=== PATIENT | male | born 1965 | race Caucasian/White ===

== ENCOUNTER 2016-06-30 23:59 | Emergency (ER) | payer OTHER ==
[~2016-06-30] VITALS: Ht 175.3 cm; Wt 90.9 kg
[~2016-06-30 23:59] MED LIST: BLOO-1504 MC; LEVO500T16 PO; ONDA-54 PO; [UNRECOGNIZED DRUG - OTHER]; [UNRECOGNIZED DRUG - SUPPLY] INTRADERM
[2016-07-01 00:22] VITALS: BP 108/62; PULSE 114; O2SAT 98
--- NOTE | 2016-07-01 00:40 | ED.REPORT ---
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 Pain is relieved by laying flat, and certain positions that take pressure off his abdomen.The patient reports having nausea, shortness of breath, chest pain, vomiting, intermittent fever with a high of 105F and decreased urination frequency. He report regular flatulence, and denies chills and leg swelling. Last chemotherapy treatment was a week ago. Patient's code status is DNAR, reasonable measures. Nursing Notes Stated Complaint: ABDOMINAL PAIN Chief Complaint: Male Abdominal Pain Nursing Notes Reviewed: Yes Allergies: Coded Allergies: mold (Verified Allergy, Unknown, 07/01/16) Uncoded Allergies: POLLEN (Allergy, Unknown, 09/07/15) Scheduled Blood Sugar Diagnostic (Test Strips) 1 Each Strip 1 EACH MC BIDAC check glucose levels when symptomatic Levofloxacin (Levaquin) 500 Mg Tablet 500 MG PO DAILY Ondansetron (Ondansetron) 8 Mg Tablet 8 MG PO TID Scheduled PRN Ondansetron ODT (Ondansetron ODT) 4 Mg Tab.rapdis 4 MG PO Q6H PRN PRN For Nausea Miscellaneous Medications ([diability permit]) General Time Seen by MD: 00:39 Chief Complaint Abdominal pain Hx Obtained From: Patient Arrived By: Walk-in Sudden in Onset?: Yes Onset Occurred: 1 week ago Symptom Duration: 1 week Location: : Diffuse Quality: Pressure Severity: Current: Pain level 7 out of 10 Recent Healthcare: No recent hospitalization, Recent doctor visit Similar Sx Previous: Yes Past Medical History Past Medical History Melanoma with mets to liver, spleen, prostate, eyes reports borderline hyperlipidemia Reports: GERD, Hypertension Past Surgical History removal of melanoma Family History Has two uncles who of myocardial infarctions in their 60s Smoking History Never Smoker Social History Alcohol Use: "Social" Drug Use: Denies drug use Other Social History: Good social support, Local resident 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 Physical Exam Initial Vital Signs Vital Signs (First) Date Time Temp Pulse Resp B/P Pulse Ox O2 Delivery O2 Flow Rate FiO2 07/01/16 00:22 36.5 114 108/62 98 Room Air 07/01/16 03:33 20 Initial VS: Reviewed General/Constitutional: Awake, Alert, No acute distress Appearance / Presentation: Positive: Ill appearing/not toxic (chronic) Respiratory / Chest: Atraumatic, Breath sounds NL, Breath sounds = bilat, No respiratory distress Cardiovascular: Heart sounds NL Heart Rate / Rhythm: Positive: Tachycardia Abdomen: No guarding Bowel Sounds / Distention: Positive: Distention severe (with fluid wave) liver is palpable 10cm below costoverterbral angle mild diffuse tenderness to liver Back: Atraumatic, Full range of motion Head / Eyes: Atraumatic, Normocephalic, PERRL, EOMI ENT: Atraumatic, Airway patent, Mucous membranes moist Skin: Atraumatic, Color NL, No rash, Warm, Dry Neurologic: Oriented X3, Speech NL, No motor deficits, No sensory deficits Neck: Atraumatic, Supple, Full range of motion Upper Extremity / MS: Atraumatic, Full range of motion Lower Extremity / Pelvis / MS: Atraumatic, Full range of motion Psychiatric: Affect NL, Mood NL Interpretation & Diagnostics Lab Results Interpretation Result Diagram: 07/01/16 0045 07/01/16 0045 Test 07/01/16 00:45 White Blood Count 5.4th/mm3 (3.8-10.1) Red Blood Count 3.05mil/mm3 (4.40-5.80) Hemoglobin 8.7g/dL (13.8-17.2) Hematocrit 28.0% (41.0-50.0) Mean Corpuscular Volume 91.8fL (81-100) Mean Corpuscular Hemoglobin 28.5pg (27.0-35.0) Mean Corpuscular Hemoglobin Concent 31.1% (32.0-37.0) Red Cell Distribution Width 16.6% (12.3-15.4) Platelet Count 202bil/L (150-400) Neutrophils (%) (Auto) 62.0% (40-74) Lymphocytes (%) (Auto) 12.0% (14-46) Monocytes (%) (Auto) 16.6% (4-12) Eosinophils (%) (Auto) 1.5% (0-5) Basophils (%) (Auto) 0.9% (0-3) Band Neutrophils % 7% (1-5) Prothrombin Time 14.8sec (8.1-12.5) Prothromb Time International Ratio 1.37ratio Sodium Level 131mEq/L (134-144) Potassium Level 4.6mEq/L (3.5-5.2) Chloride Level 95mEq/L (97-108) Carbon Dioxide Level 18mmol/L (18-29) Blood Urea Nitrogen 15mg/dL (6-24) Creatinine 0.88mg/dL (0.76-1.27) Estimat Glomerular Filtration Rate 98mL/min (>59) Glucose Level 115mg/dL (60-99) Calcium Level 7.6mg/dL (8.5-10.1) Magnesium Level 2.6mg/dL (1.6-2.6) Total Bilirubin 2.4mg/dL (0.0-1.2) Aspartate Amino Transf (AST/SGOT) 119U/L (0-50) Alanine Aminotransferase (ALT/SGPT) 36U/L (0-44) Alkaline Phosphatase 629U/L (25-150) Total Protein 6.3g/dL (6.4-8.4) Albumin 3.2g/dL (3.4-5.0) Lipase 42U/L (13-60) ECG Interpretation ECG Interpretation: sinus tachycardia, rate [address] elevations no T wave inversions no change from prior Time: 01:03 Interpreted by: ED physician CT Abd / Pelvis Interpretation Findings: lower thorax: no acute findings. Abdomen: liver: the liver is severly enlarged and contains multiple low density areas, metastatic disease is favored. There are additional soft tissue nodules seen throughout the abdomen and pelvis, metastatic disease or lymphoma should be considered. Gallbladder and bile ducts: normal. No calcified stones. No ductal dilation. Pancrease: Normal. No ductal dilation. Spleen: Multiple low- density foci, metastic disease or lymphoma should be considered. Adrenals: Normal. No masses Kidneys and ureters: No hydronephrosis. No CT evidence of mass. Pelvis: Bladder: No stones. No wall thickening. Reproductive: Normal as visualized. Appendix: No findings to suggest actute appendicitis. Abdomen and Pelvis: Stomach and bowel: No obstruction. No wall thickening. Peritoneum: No fluid collection. No free air. Low volume free fluid. Lymph nodes: No lymph nodes which are considered pathologic by CT size criteria. Vasculature: No aortic aneurysm. Body wall: No fluid collections, edema or mass. Bones: Multiple lytic areas throughout the pelvis, spine and proximal femurs, lymphoma versus metastatic disease. Impression: Enlarged liver containing multiplle low density masses, there is also soft tissue nodules throughout the abdomen and pelvis, lytic lesions throughout the visualized osseous structures and low- density areas throughout the spleen. Differential diagnosis includes metastatic disease versus lymphoma. Study type: Abdominal CT IV contrast Interpretation / Wet Read by: Interpret - Radiologist Re-Eval/Medical Decision Med Decision/Clinical Course 50-year-old male with past medical history of metastatic melanoma here with worsening of his abdominal distention over the last several days. Differential diagnosis includes but is not limited to Luke he has bacterial peritonitis versus new onset ascites versus hepatomegaly versus worsening of his disease. Initially, my plan was to perform CT scan of the patient to confirm ascites, and then perform paracentesis to rule out SBP. His CT scan was concerning as his entire abdomen appears to be liver, and there is very minimal ascites to withdraw. I deferred doing a paracentesis as I was concerned for puncturing his liver. Labs appear to be at baseline with anemia, mild bandemia, expected electro abnormalities and liver dysfunction. I do not feel that there is any emergent need to admit the patient to the hospital for his worsening hepatomegaly. He has follow-up in 2 days with his oncologist. He is aware and amenable to discharge and has been given very strict return precautions. Source of Hx: Old records Time of Eval: 02:53 Re-Evaluation/Progress Note: Discussed lab and imaging results and plan to discharge with plan for immediate follow-up with oncology. Return precautions given. All other questions addressed. Counseled Regarding: Diagnosis, Lab results, Need for follow-up, When/why to return to ED Discharge & Departure Primary Impression: Hepatomegaly Disposition: Home Vital Signs - All Vital Signs Date Time Temp Pulse Resp B/P Pulse Ox O2 Delivery O2 Flow Rate FiO2 07/01/16 03:33 102 20 104/50 97 Room Air 07/01/16 00:22 36.5 114 108/62 98 Room Air )( All Prior VS Reviewed: Yes Condition: Stable Additional Instructions: Take the prescribed Zofran as directed for nausea. Follow-up with your oncologist first thing Sunday morning as planned. Return to the ER if you develop any new or uncontrollable pain, or any other worsening or concerning symptoms. Referrals: Macho López MD [facility] Scribe Attestation Portions of this note were transcribed by Elle Rojas and Lc Kemp. I, Dr. Billy personally performed the history, physical exam and medical decision- making; I reviewed and confirmed the accuracy of the information in the transcribed note. Signed by: Elle Rojas and Marta Guerrero, 07/01/16 and 03:03 copies to: Macho López MD; [facility] Daniella Billy MD Jul 01, 2016 00:40 Marjorie Rojas Jul 01, 2016 00:57 LC KEMP Jul 01, 2016 02:22
[2016-07-01 00:59] LABS: Mean Corpuscular Hemoglobin 28.5 pg (27.0-35.0); Mean Corpuscular Volume 91.8 fL (81-100); Platelet Count 202 bil/L (150-400)
[2016-07-01 01:32] LABS: BASOPHILS % (AUTO) 0.9 % (0-3); EOSINOPHILS % (AUTO) 1.5 % (0-5); MONOCYTES % (AUTO) 16.6 % (4-12)
[2016-07-01 01:45] LABS: Magnesium 2.6 mg/dL (1.6-2.6)
[2016-07-01 01:56] LABS: INR 1.37 ratio
[2016-07-01] MEDS ORDERED: Ondansetron 2 mg/mL 2 mL Inj ONE (02:12)
[2016-07-01] MEDS ORDERED: Ondansetron 2 mg/mL 2 mL Inj IVPUSH ONE (02:15)
[2016-07-01] MEDS ORDERED: _Ondansetron ODT 4 mg Tablet PO PRN (03:05)
[2016-07-01] MEDS ORDERED: ONDA4TAB12 PO (03:13)
[2016-07-01 03:33] VITALS: BP 104/50; PULSE 102; RESP 20; O2SAT 97
--- NOTE | 2016-07-01 11:31 | DRSVH ---
PROCEDURE: CT ABDOMEN AND PELVIS WITH CONTRAST ([id number]) INDICATIONS: new onset distention, metastatic melanoma and known but the extensive involvement of th e lungs liver spleen and adenopathy in the neck supraclavicular or lesion mediastinum and pelvis. TECHNIQUE: After the administration of intravenous contrast, 5 mm thick sections acquired from the diaphragm to the symphysis. 5 mm coronal and sagittal reformats were acquired. For radiation dose reduction, the following was used: automated exposure control, adjustment of mA and/or kV according to patient siz e. COMPARISON: None. FINDINGS: Image quality: Excellent. ABDOMEN: Lung bases: Lung bases demonstrate increasing size of the bilateral numerous nodules. There is some subsegmental atelectasis at both lung bases. Heart size is normal. In the lower subcutaneous chest w all fat nodules presently seen have increased in size to previous study. Solid organs: The liver is prominently enlarged for multiple metastatic lesions in the liver is more enlarged than it was on the previous study of 06/12/16, thought to account for the distention. Spleen is considered unchanged with scattered lesions consistent with metastases.. Gallbladder is thought t o be identified and normal.. Biliary system is non dilated. Pancreas enhances normally. The nodular prominence of the left adrenal gland is unchanged. The right adrenal gland is considered normal.. K idneys demonstrate normal size and enhancement, without hydronephrosis. Peritoneum and bowel: Bowel loops demonstrate normal wall thickness and caliber. No free air. A sma ll amount of peritoneal fluid has increased slightly. The difference is not felt to account for the d istention. Nodes and vessels: No retroperitoneal or mesenteric adenopathy by size criteria. Aorta and inferior vena cava are normal in size. Miscellaneous: No ventral hernias. PELVIS: Genitourinary: Bladder wall thickness is normal. Probable prostate calcification rather than bladde r floor small stone. Miscellaneous: No inguinal hernias or adenopathy. Bones: Extensive lytic bony lesions are present but not identifiably changed. No vertebral body compr ession fractures. IMPRESSION: Prominent enlargement of the liver from increasing metastatic lesions in the liver. This is thought to account for the distention of the abdomen. Minimal increase in the small amount of ascites is not thought to account for the distention. Numerous bony lytic metastases noted as well. Bone lesions are not identifiably changed since the pre vious CT. Dictated by: Gaurang Solis M.D. on 07/01/2016 at 11:17 this report corresponds to the findings of t he preliminary NSR report. Approved by: Gaurang Solis M.D. on 07/01/2016 at 11:29
[2016-07-06] MEDS ORDERED: NAPR220C11 PO (08:14)
[2016-07-06] MEDS ORDERED: LACT10SO27 PO (08:14)
[2016-07-06] MEDS ORDERED: [UNRECOGNIZED DRUG - CODE] PO (08:14)
[2016-07-06] MEDS ORDERED: VEMU240T PO (08:14)
[2016-07-18] MEDS ORDERED: DEX1 PO (10:42)
== END 2016-07-01 03:33 | disposition home or self-care (01) ==
LOC: SED 23:59
DX: R16.0 Hepatomegaly, not elsewhere classified (principal); C43.9 Malignant melanoma of skin, unspecified; C78.7 Secondary malignant neoplasm of liver and intrahepatic bile duct; K21.9 Gastro-esophageal reflux disease without esophagitis; I10 Essential (primary) hypertension; Z66 Do not resuscitate
CPT/HCPCS: 74177; 80053; 83690; 83735; 85025; 85610; 93005; 96374; 99285; J2405; Q9967